=== PATIENT | male | born 1940 | race Asian ===

== ENCOUNTER 2016-05-17 09:03 | Emergency (ER) | payer OTHER ==
[~2016-05-17] VITALS: Wt 84.1 kg
[2016-05-17 09:55] LABS: URINE BLOOD (Dip) POC 2+ (NEGATIVE)
--- NOTE | 2016-05-17 10:00 | ERD ---
ER Documentation Chief Complaint Date/Time DATE: 05/17/16 TIME: 09:59 Chief Complaint fc change, see attached note HPI 75-year-old male with history of BPH, hypertension, high cholesterol, and gout was sent here by PCP for Villagomez catheter replacement. The Villagomez catheter was originally placed on April 27, 2016. He has follow-up appointment with urologist, but not until June. Patient reports the catheter has been leaking. He also reports suprapubic pain, states that he was diagnosed with urinary tract infection 5 days ago, was given Keflex. The symptom has not resolved. Patient also reports one episode of epistaxis at 2 AM this morning. The bleeding has since stopped. Denies taking any blood thinners. Denies fever or chills. ROS All systems reviewed and are negative except as per history of present illness. Medications Home Meds Active Scripts Ciprofloxacin Hcl* (Ciprofloxacin Hcl*) 500 Mg Tablet, 500 MG PO BID for 7 Days , TAB Prov:CLAIRE SANCHEZ. PERMASTONE MECHANIC 05/17/16 Physical Exam Vitals Vital Signs Date Time Temp Pulse Resp B/P Pulse Ox O2 Delivery O2 Flow Rate FiO2 05/17/16 09:11 97.3 81 20 135/63 98 Physical Exam General impression: Well-developed, well-nourished. Alert, oriented, in no acute distress Head: Normocephalic, atraumatic. Eyes: PERRL, EOM normal. Sclerae are normal. Conjunctiva not injected. ENT: External canals patent. TM'sclear. Nasal mucosa, oral mucosa and oropharynx are normal. Neck: Supple, nontender. No lymphadenopathy. No nuchal rigidity. Respiration: Normal respiratory effort. Lungs clear to auscultate bilaterally. No wheezes, rales or rhonchi. Cardiovascular: Regular rate and rhythm. No murmurs or extra heart sounds. Abdomen: Abdomen normal to inspection. Mild suprapubic tenderness. No masses or organomegaly. Bowel sounds normal. Back: Normal to inspection. No midline spine tenderness. No CVA tenderness. Extremities: Extremities normal to inspection, nontender. ROM normal. Neuro: Mental status normal, speech normal. OFFSET ASSISTANT PRESS OPERATOR grossly intact. Skin: Normal turgor. No rash or lesions. Psych: Normal mood and affect. Results 24 hrs Laboratory Tests Test 05/17/16 09:55 Bedside Urine pH (LAB) 6.0 Bedside Urine Protein (LAB) Trace Bedside Urine Glucose (UA) Negative Bedside Urine Ketones (LAB) Negative Bedside Urine Blood 2+ Bedside Urine Nitrite (LAB) Negative Bedside Urine Leukocyte Esterase (L Trace Procedures/MDM Well-appearing 75-year-old male with history of BPH presented to the ED for Villagomez catheter replacement. Previous Villagomez was removed, new Villagomez was inserted. Urine was collected from a new Villagomez catheter. Urine dip showed trace leukocyte, 2+ blood, negative nitrite. I do have concern for Villagomez catheter related urinary tract infection. Patient is advised to discontinue Keflex. Cipro is prescribed for the patient. Patient is nontoxic-appearing. Patient appears well, stable for discharge and outpatient management. Medical decision making shared with patient and family. Education provided to patient and family. Patient and family expressed understanding of the plan. Medications on discharge: Cipro. Follow-up: Primary care provider in 2-3 days or return to ED if worse. Departure Diagnosis: Primary Impression: Encounter for Villagomez catheter replacement Additional Impression: UTI (urinary tract infection) Urinary tract infection type: catheter-associated UTI Indwelling urinary catheter type: indwelling urethral catheter Encounter type: initial encounter Qualified Code: T83.511A - Urinary tract infection associated with indwelling urethral catheter, initial encounter Condition: CLAIRE Zhou NP May 17, 2016 10:00
[2016-05-17] MEDS ORDERED: CIPR500T4 PO (10:25)
== END 2016-05-17 11:01 | disposition home or self-care (01) ==
LOC: FTE 09:03
DX: T83.098A Other mechanical complication of other urinary catheter, initial encounter (principal); T83.511A Infection and inflammatory reaction due to indwelling urethral catheter, initial encounter; I10 Essential (primary) hypertension; R10.30 Lower abdominal pain, unspecified; N39.0 Urinary tract infection, site not specified; Y73.2 Prosthetic and other implants, materials and accessory gastroenterology and urology devices associated with adverse incidents
CPT/HCPCS: 81003; 87086; Z7502; 99283

== ENCOUNTER 2016-06-02 14:08 | Emergency (ER) | payer OTHER ==
[~2016-06-02] VITALS: Ht 160 cm; Wt 78.8 kg
[~2016-06-02 14:08] MED LIST: CIPR500T4 PO
[2016-06-02 14:11] VITALS: Ht 160 cm; Wt 78.8 kg
[2016-06-02] MEDS ORDERED: NORM5DIS26 IJ (15:43)
--- NOTE | 2016-06-02 16:56 | ERD ---
ER Documentation Chief Complaint Date/Time DATE: 06/02/16 TIME: 16:55 Chief Complaint wants f/c check up, is leaking HPI Patient is a 76-year-old male with hypertension and urinary retention who presents with a leaking Villagomez catheter. The patient said that he has had the Villagomez catheter in since April and that it needs to be changed. He has no other complaints. He is planning to see Dr. Block on June 19. He has no fevers. He has no other complaints. ROS All systems reviewed and are negative except as per history of present illness. Medications Home Meds Active Scripts Normal Saline (Normal Saline Flush) 5 Ml Disp.syrin, 5 ML IJ ONCE, #30 Prov:ELIZABETH RHODES MD 06/02/16 Ciprofloxacin Hcl* (Ciprofloxacin Hcl*) 500 Mg Tablet, 500 MG PO BID for 7 Days , TAB Prov:CLAIRE SANCHEZ BUSINESS SUPPORT ASSOCIATE 05/17/16 PMhx/Soc History of Surgery: Yes (BILAT CATHARACT SX) Hx Alcohol Use: No (QUIT YEARS AGO) Hx Substance Use: No Hx Tobacco Use: No (QUIT YEARS AGO) Smoking Status: Never smoker FmHx Family History: diabetes Physical Exam Vitals Vital Signs Date Time Temp Pulse Resp B/P Pulse Ox O2 Delivery O2 Flow Rate FiO2 06/02/16 14:11 98.5 90 18 122/58 99 Physical Exam Const: No acute distress Head: Atraumatic Eyes: Normal Conjunctiva ENT: Normal External Ears, Nose and Mouth. Neck: Full range of motion..~ No meningismus. Resp: Clear to auscultation bilaterally Cardio: Regular rate and rhythm, no murmurs Abd: Soft, non tender, non distended. Normal bowel sounds Skin: No petechiae or rashes Back: No midline or flank tenderness Ext: No cyanosis, or edema Neur: Awake and alert : Villagomez catheter in place without signs of obvious leakage or infection at this time Procedures/MDM Patient is a 76-year-old male presents with a Villagomez catheter leaking. The patient will have his Villagomez catheter changed. I do not believe he requires further workup or admission the hospital at this time. He should try to see Dr. Block sooner so that this can be evaluated. The patient can return for any worsening symptoms. Departure Diagnosis: Primary Impression: Genitourinary symptoms Additional Impression: Complication of catheter Encounter type: initial encounter Qualified Code: T85.9XXA - Complication of catheter, initial encounter Condition: Fair Patient Instructions: Urinary Retention, Male Referrals: DASHA LIMA (PCP) DONALD BLOCK MD Additional Instructions: SPECIALIST: YOU HAVE A MEDICAL CONDITION WHICH REQUIRES YOU TO SEE A SPECIALIST WITHIN THE NEXT 1-2 DAYS. PLEASE FOLLOW UP WITH YOUR PRIMARY PHYSICIAN FOR REFFERAL.IF YOU DO NOT HAVE A PRIMARY CARE PHYSICIAN AND/OR YOU CAN NOT AFFORD TO SEE A PHYSICIAN THE FOLLOWING RESOURCES HAVE BEEN SUPPLIED TO YOU. IT IS YOUR RESPONSIBILITY TO BE SEEN BY THE SPECIALIST ELIZABETH RHODES MD Jun 02, 2016 16:56
== END 2016-06-02 15:58 | disposition home or self-care (01) ==
LOC: FTE 14:08
DX: T83.038A Leakage of other urinary catheter, initial encounter (principal); I10 Essential (primary) hypertension; Y73.3 Surgical instruments, materials and gastroenterology and urology devices (including sutures) associated with adverse incidents; Z87.891 Personal history of nicotine dependence
CPT/HCPCS: 99283

== ENCOUNTER 2017-01-05 08:40 | Inpatient (IN) | payer OTHER ==
[2017-01-04 14:55] VITALS: BMI 26.3
[~2017-01-05] VITALS: Ht 170.2 cm; Wt 75.4 kg
[2017-01-05] VITALS (20 sets, daily range): BP systolic 121–191; BP diastolic 58–100; PULSE 67–84; RESP 11–20; Ht 170.2 cm; Wt 75.4 kg
--- NOTE | 2017-01-05 08:04 | HP ---
DATE OF ADMISSION: 01/05/2017 CHIEF COMPLAINT: Urinary retention and adenocarcinoma of the prostate and bladder stone. HISTORY OF PRESENT ILLNESS: This is a 76-year-old male [place]e, had urinary retention since this year. He has had multiple visits to the emergency room at [facility] and at [facility] because of the retention. He did have an indwelling Villagomez catheter and that has been c hanged regularly because the patient was not able to urinate once the catheter is removed. The bennett ent also was found to have an elevated PSA and because of that, he underwent a transrectal ultrasoun d and ultrasound-guided biopsy of the prostate and that showed adenocarcinoma of the prostate, Gleas on score of 8. The patient also did have a workup and appeared to also because of the retention, he needs to undergo a transurethral resection of the prostate. PAST MEDICAL HISTORY: He does have a history of heart murmur. There is no history of myocardial in farction, no history of congestive heart failure. He does have a history of hypertension and high c holesterol. PAST SURGICAL HISTORY: He did have bilateral eye surgery for cataracts. MEDICATIONS: He has been on at home include: 1. Flomax 0.4 mg. 2. Benazepril 10 mg daily. 3. Atorvastatin 40 mg daily. SOCIAL HISTORY: The patient used to smoke and quit 20 years ago and he does not drink any alcohol. ALLERGIES: HAS NO KNOWN DRUG ALLERGIES. PHYSICAL EXAMINATION: GENERAL: Reveals an elderly male who is in no acute distress. HEAD AND NECK: Unremarkable. There is no cervical adenopathy. HEART: Regular. LUNGS: Clear. ABDOMEN: Soft with no abdominal mass palpable. He does have bilateral inguinal hernias, right side greater than the left. GENITALIA: External genitalia are normal. RECTAL: Examination revealed a hard prostate. GENITOURINARY: The patient does have an indwelling Villagomez catheter that is draining clear urine. The patient later on underwent a transrectal ultrasound and ultrasound-guided biopsy of the prostate . His PSA was 22.3. The transrectal ultrasound-guided biopsy did show adenocarcinoma, [place] scor e of 8 on both sides. The patient did have a bone scan and this showed lesions within bilateral rib s, could represent sequelae of prior trauma, a neoplastic process cannot be completely excluded. Th is can either be reevaluated by a CT or a rib series. Alternatively, followup bone scan can be perf ormed to evaluate for stability and/or changes, no abnormal tracer uptake or discrete lesions noted elsewhere otherwise to suggest osseous metastasis, degenerative changes also. The patient did have a CT scan of the abdomen and pelvis without and with contrast and that was reported as marked enlarg ement of the prostate gland with moderate to marked thickening of the urinary bladder wall, enlarged urinary bladder calculus that measured about 1.8 cm. The patient did not have any regional lymphad enopathy or bony metastatic disease. He does have distal abdominal aortic aneurysm with dilated pro ximal common iliac arteries as well. Bilateral fat containing inguinal hernias, right larger than l eft and gallstones. IMPRESSION: 1. Urinary retention. 2. Adenocarcinoma of the prostate. PLAN: To do a cystoscopy and transurethral resection of the prostate. Also try to remove the bladd er stone. I have explained the procedure to the patient in detail. The benefits and risks were dis cussed and he is agreeable to proceed. Dictated By: DONALD BALLARD/COLETTE Conf#: [id number] DID#: [id number]
[~2017-01-05 08:40] MED LIST changes: +CEFTRIAXONE 1 GM/NS 50 ML IVPB SCH; +NORM5DIS26 IJ
[2017-01-05] MEDS ORDERED: ATOR20TA38 PO (09:25)
[2017-01-05] MEDS ORDERED: BENA10TA48 PO (09:26)
[2017-01-05] MEDS ORDERED: CALC500T91 PO ×2 (09:26→10:56)
[2017-01-05] MEDS ORDERED: TAMS-14 PO (09:26)
--- NOTE | 2017-01-05 10:25 | RADRPT ---
PROCEDURE: Chest x-ray CLINICAL INDICATION: Preop TECHNIQUE: Chest single view COMPARISON: None FINDINGS: The heart is normal in size. The pulmonary vessels are normal in caliber. The lungs are clear. Th e costophrenic angles are sharp. The visualized bony thorax is unremarkable. IMPRESSION: No acute cardiopulmonary disease. Mild atherosclerotic aortic calcification RPTAT: HH .Jonathan Carreno MD, Date Time Electronically viewed and signed by .Jonathan Carreno MD, MD on 01/05/2017 10:25 .W/
[2017-01-05] MEDS ORDERED: ATOR40TA68 PO (10:57)
[2017-01-05] MEDS ORDERED: CEFTRIAXONE 1 GM INJ IM ONE (12:30)
[2017-01-05] MEDS ORDERED: MIDAZOLAM 1 MG/ML 2 ML INJ ONE (12:42)
[2017-01-05] MEDS ORDERED: PHENYLephrine (100 MCG/ML) 5ML SYG ONE (12:50)
[2017-01-05] MEDS ORDERED: ROCURONIUM 50 MG INJ ONE ×2 (13:12→14:06)
[2017-01-05] MEDS ORDERED: SUCCINYLCHOLINE CHLORIDE 100 MG/5 ML SYG IV ONE (13:12)
[2017-01-05] MEDS ORDERED: PROPOFOL 20 ML ONE (13:12)
[2017-01-05] MEDS ORDERED: LIDOCAINE 2% (SDV) 5 ML INJ ONE (13:12)
[2017-01-05] MEDS ORDERED: FENTAnyl 50 MCG/ML VIAL ONE (13:12)
[2017-01-05] MEDS ORDERED: DEXAMETHASONE 4 MG/ML 1 ML INJ ONE (13:18)
[2017-01-05] MEDS ORDERED: ONDANSETRON 4 MG INJ ONE (13:18)
[2017-01-05] MEDS ORDERED: FAMOTIDINE 20 MG INJ ONE (13:18)
[2017-01-05] MEDS ORDERED: SUGAMMADEX SODIUM 200 MG/2 ML VIAL IV ONE ×3 (14:19→14:36)
[2017-01-05] MEDS ORDERED: GLYCOPYRROLATE 0.4 MG INJ ONE (14:35)
[2017-01-05] MEDS ORDERED: LABETALOL HCL 20MG INJ ONE (14:37)
[2017-01-05] MEDS ORDERED: KETOROLAC 30 MG INJ ONE (14:41)
--- NOTE | 2017-01-05 14:58 | OPR ---
Date/Time of Note Date/Time of Note DATE: 01/05/17 TIME: 14:53 Operative Report Procedure Date: Jan 05, 2017 Preoperative Diagnosis Adenocarcinoma of the prostate, urinary retention, bladder stone Postoperative Diagnosis Adenocarcinoma of the prostate, urinary retention, bladder stone Operation/Procedure Performed Transurethral resection of the prostate and removal of bladder stone Surgeon see signature line Senior Risk Analyst None Anesthesia Type: general Anesthesiologist: AUGUSTA BOYD MD Estimated Blood Loss: 150 - 200 ml's Transfusion none Specimen Prostatic tissue Grafts/Implants none Tubes/Drains 24 Jamaican three-way Villagomez catheter with continuous bladder irrigation Complications none Pt Condition Post Procedure: stable Disposition: PACU Indications Adenocarcinoma of the prostate with urinary retention and bladder stone Procedure Description The patient was brought to the operating room general anesthesia was induced. Timeout was done the patient was identified by his name birthdate and the procedure. The patient was given 1 g of ceftriaxone IV at the start of the procedure. The genital area was then prepped and draped in the usual sterile manner. cystoscopy was done was a 22 Jamaican cystoscope and it showed a large bladder stone and prostatic enlargement with obstruction, the bladder was trabeculated, there was no bladder tumors . The bladder stone was then broken using the 1000 m holmium laser and all the stone fragments were drained out of the bladder. The cystoscope was then removed and the urethra was dilated with a Nette dilators up to #30 Jamaican. The 26 Jamaican bipolar resectoscope sheath was then introduced under direct vision through the penile urethra all the way to the bladder. Then the resection of the prostate was started first the median lobe was resected then the right lateral lobe then the left lateral lobe and finally the anterior lobe as well as apical tissue. All the bleeders were electrocoagulated, all the prostatic chips were evacuated, good hemostasis was obtained. The ureteral orifices as well as external sphincter were intact and safeguarded during the whole procedure. At the end of the procedure the resectoscope was removed and #24 Jamaican three-way Villagomez catheter was inserted into the bladder the balloon was inflated with 60 mL of sterile water. the catheter was connected to a drainage back and continuous bladder irrigation was started in the operating room with normal saline. The patient was transferred to the recovery room in stable and satisfactory condition. DONALD BLOCK MD Jan 05, 2017 14:58
[2017-01-05] MEDS ORDERED: PROCHLORPERAZINE 10 MG INJ IV PRN (15:00)
[2017-01-05] MEDS ORDERED: ONDANSETRON 4 MG INJ IV PRN (15:00)
[2017-01-05] MEDS ORDERED: DEXTROSE 5%-0.45% NACL 1,000 ML IV SCH (15:00)
[2017-01-05] MEDS ORDERED: HYDROmorphONE (0.2 MG/ML) 10ML SYG IV PRN ×2 (15:00)
[2017-01-05] MEDS ORDERED: hydrALAzine 20 MG INJ ONE (15:01)
[2017-01-05] MEDS: FENTAnyl 50 MCG/ML VIAL IV PRN ×3 (15:20→15:34)
--- NOTE | 2017-01-05 15:23 | CONS ---
Date/Time of Note Date/Time of Note DATE: 01/05/17 TIME: 15:23 Assessment/Plan Assessment/Plan Chief Complaint/Hosp Course 76 yo M with PMH hypertension and hyperlipidemia is s/p TURP and bladder stone removal POD #0 after experiencing urinary retention since earlier this year Problems: Additional Assessment/Plan 1. Hypertension - Will resume patients home medication, Benazepril, and adjust as needed - Most likely component of pain that is contributing to elevated SBP 2. Hyperlipidemia - continue on Lipitor 3. Heart murmur - stable 4. Urinary retention s/p cystoscopy and bladder stone removal - management per primary team, Urology 5. Adenocarcinoma of Prostate - Bowler score 8 - s/p TURP - management per Primary Thank you for allowing me to participate in the care of this patient. Please call with any questions or concerns. Consultation Date/Type/Reason Admit Date/Time Jan 05, 2017 at 14:47 Date of Consultation: Jan 05, 2017 Reason for Consultation hypertension management Hx of Present Illness 76 yo M with PMH HTN, HLD, and heart murmur is s/p TURP and bladder stone removal after experiencing urinary retention since this year. Patient was interviewed in recovery and complaining of pain in pelvic area. History obtained from patient, chart and nurse at bedside. Patient has had multiple emergency room visits at [facility] as well as [facility]. Patient had an indwelling quispe placed that was changed regularly secondary to retention. Patient was found to have an elevated PSA as well with biopsy that showed Adenocarcinoma of prostate. Patient denies any diabetes, thyroid issues, chest pain, shortness of breath, nausea, vomiting, or abdominal issues. All 12 systems reviewed and pertinent positives as per HPI. All other negative. Constitutional: No chills, No diaphoresis, No disoriented, No febrile Eyes: no complaints ENT: No congestion, No discharge Respiratory: No cough, No shortness of breath, No sputum, No wheezing Cardiovascular: no complaints, No chest pain, No edema, No lightheadedness, No palpitations Gastrointestinal: No constipation, No diarrhea, No nausea, No vomiting Genitourinary: other (pelvic pain s/p TURP), No discharge, No dysuria Skin: no complaints, No erythema, No pruritis, No rash Neurologic: no complaints, No confusion, No focal-weakness, No headache Lymphatic: no complaints Psychological: nl mood/affect Immunologic: no complaints Past Medical History Medical History: high cholesterol, hypertension, other (heart murmur) Past Surgical History Past Surgical Hx: other (TURP, bx of prostate, bilateral cataract surgery) Family History Significant Family History: no pertinent family hx Social History Alcohol Use: occasionally Smoking Status: Former smoker Drug Use: none Exam/Review of Systems Vital Signs Vitals Vital Signs Date Time Temp Pulse Resp B/P Pulse Ox O2 Delivery O2 Flow Rate FiO2 01/05/17 14:58 78 16 180/100 97 Mask 8.0 01/05/17 14:55 98.0 Exam Constitutional: alert, distress (secondary to pain), oriented, well developed Psych: nl mood/affect Head: atraumatic, normocephalic Eyes: EOMI, PERRL ENMT: mucosa pink and moist Neck: non-tender, supple Respiratory: clear to auscultation, No crackles/rales, No wheezing Cardiovascular: regular rate and rhythm, systolic murmur, No gallop, No rub Gastrointestinal: bowel sounds, firm, non-tender, soft, No rebound or guarding Genitourinary - Male: other, No CVA tenderness Musculoskeletal: nl extremities to inspection, No muscle weakness, No swelling Extremities: No clubbing, No cyanosis, No edema Neurological: SENIOR FINANCIAL CONSULTANT II-XII intact, nl mental status, nl speech Skin: nl turgor Lymph: nl lymph nodes Imaging Free Text/Dictation PROCEDURE: Chest x-ray CLINICAL INDICATION: Preop TECHNIQUE: Chest single view COMPARISON: None FINDINGS: The heart is normal in size. The pulmonary vessels are normal in caliber. The lungs are clear. The costophrenic angles are sharp. The visualized bony thorax is unremarkable. IMPRESSION: No acute cardiopulmonary disease. Mild atherosclerotic aortic calcification Medications Medications Current Medications Dextrose/Sodium Chloride (D5-1/2ns) 1,000 ml @ 50 mls/hr Q20H IV ; Start at 15:00 Docusate Sodium (Colace) 100 mg BID PO ; Start 01/05/17 at 15:00 Acetaminophen/ Hydrocodone Bitart ([place] (5/325)) 1 tab Q6H PRN PO pain; Start 01/05/17 at 15:00 Procedures Procedures 1. TURP 2. removal of bladder stone NORMAN TRAN MD Jan 05, 2017 15:23
[2017-01-05] MEDS ORDERED: hydrALAzine 20 MG INJ IV PRN (15:30)
[2017-01-05] MEDS ORDERED: LABETALOL HCL 20MG INJ IV PRN (15:30)
[2017-01-05] MEDS: DOCUSATE SODIUM 100 MG CAP PO SCH ×2 (20:30→23:00)
[2017-01-05] MEDS: CALCIUM CARBONATE 1.25 GM TAB PO SCH (20:36)
[2017-01-05] MEDS ORDERED: TAMSULOSIN (SR) 0.4 MG CAP PO SCH (21:00)
[2017-01-05] MEDS ORDERED: CALCIUM CARBONATE 1.25 GM TAB PO SCH (21:00)
[2017-01-05] MEDS ORDERED: ATORVASTATIN 40 MG TAB PO SCH (21:00)
[2017-01-05] MEDS: HYDROCODONE/APAP (5/325) TAB PO PRN (23:03)
[2017-01-06] MEDS: HYDROCODONE/APAP (5/325) TAB PO PRN (04:43)
[2017-01-06 06:10] LABS: BASOPHILS % 0.2 % (0.0-2.0); HEMATOCRIT 38.3 % (42.0-52.0); HEMOGLOBIN 12.9 g/dl (14.0-18.0); LYMPHOCYTES % 15.4 % (15.0-51.0); MEAN CORPUSCULAR HEMOGLOBIN 31.5 pg (29.0-33.0); MEAN CORPUSCULAR HGB CONC 33.7 g/dl (32.0-37.0); MEAN CORPUSCULAR VOLUME 93.6 fl (82.0-101.0); MEAN PLATELET VOLUME 10.6 fl (7.4-10.4); MONOCYTE # 0.8 10^3/ul (0.3-0.9); MONOCYTES % 5.8 % (0.0-11.0); NEUTROPHIL # 10.1 10^3/ul (1.6-7.5); NEUTROPHILS % 78.3 % (39.0-77.0); PLATELET COUNT 214 10^3/UL (140-415); RED BLOOD COUNT 4.09 10^6/ul (4.70-6.10); RED CELL DISTRIBUTION WIDTH 12.1 % (11.5-14.5); WHITE BLOOD COUNT 12.9 10^3/ul (4.8-10.8)
[2017-01-06 06:26] LABS: CALCIUM 9.1 mg/dl (8.4-10.2); CREATININE 0.8 mg/dl (0.61-1.24); POTASSIUM 4.3 mmol/L (3.5-5.1)
[2017-01-06 08:00] VITALS: BP 119/58; RESP 18
[2017-01-06] MEDS: CALCIUM CARBONATE 1.25 GM TAB PO SCH (08:34)
[2017-01-06] MEDS: DOCUSATE SODIUM 100 MG CAP PO SCH (08:34)
[2017-01-06] MEDS ORDERED: BENAZEPRIL 10 MG TAB PO SCH (09:00)
[2017-01-06] MEDS ORDERED: CEPASTAT LOZENGE MT PRN (10:30)
--- NOTE | 2017-01-06 10:37 | CONS ---
Date/Time of Note Date/Time of Note DATE: 01/06/17 TIME: 10:36 Assessment/Plan Assessment/Plan Chief Complaint/Hosp Course 76 yo M with PMH hypertension and hyperlipidemia is s/p TURP and bladder stone removal POD #0 after experiencing urinary retention since earlier this year Problems: Additional Assessment/Plan 1. Hypertension- stable - Continue on home medication and no changes needed to be made at this time 2. Hyperlipidemia - continue on Lipitor 3. Heart murmur - stable 4. Urinary retention s/p cystoscopy and bladder stone removal - management per primary team, Urology 5. Adenocarcinoma of Prostate - Jae score 8 - s/p TURP - management per Primary 6. Sore Throat - lozenges PRN Consultation Date/Type/Reason Admit Date/Time Jan 05, 2017 at 14:47 Initial Consult Date 01/05/17 Reason for Consultation hypertension management Exam/Review of Systems Vital Signs Vitals Vital Signs Date Time Temp Pulse Resp B/P Pulse Ox O2 Delivery O2 Flow Rate FiO2 01/06/17 08:00 98.2 80 18 119/58 96 01/05/17 19:57 Room Air 01/05/17 14:58 8.0 Intake and Output 01/05/17 01/05/17 01/06/17 14:59 22:59 06:59 Intake Total 1300 ml 1600 ml 11002 ml Output Total 1800 ml 91305 ml Balance 1300 ml -200 ml 300 ml Exam General: resting comfortably, no acute distress, awake and alert HEENT: NC/AT. PERRL, supple. CVS: S1, S2 RRR, systolic murmur Lungs: CTA b/l. no wheezes or rhonchi Abd: soft, NT, ND. +BS. no rebound or guarding Ext: moving all extremities, no edema or cyanosis : quispe in place, no blood in quispe bag Skin: no new rashes Results Result Diagram: 01/06/17 0503 01/06/17 0503 Results 24 hrs Laboratory Tests Test 01/06/17 05:03 White Blood Count 12.9 H Red Blood Count 4.09 L Hemoglobin 12.9 L Hematocrit 38.3 L Mean Corpuscular Volume 93.6 Mean Corpuscular Hemoglobin 31.5 Mean Corpuscular Hemoglobin Concent 33.7 Red Cell Distribution Width 12.1 Platelet Count 214 Mean Platelet Volume 10.6 H Neutrophils % 78.3 H Lymphocytes % 15.4 Monocytes % 5.8 Eosinophils % 0.0 Basophils % 0.2 Nucleated Red Blood Cells % 0.0 Neutrophils # 10.1 H Lymphocytes # 2.0 Monocytes # 0.8 Eosinophils # 0.0 Basophils # 0.0 Nucleated Red Blood Cells # 0.0 Sodium Level 141 Potassium Level 4.3 Chloride Level 101 Carbon Dioxide Level 28 Anion Gap 16 Blood Urea Nitrogen 15 Creatinine 0.80 Glucose Level 179 Calcium Level 9.1 Magnesium Level 1.8 Medications Medications Current Medications Dextrose/Sodium Chloride (D5-1/2ns) 1,000 ml @ 50 mls/hr Q20H IV Last administered on 01/05/17 17:18; Admin Dose 50 MLS/HR; Start 01/05/17 at 15:00 Docusate Sodium (Colace) 100 mg BID PO Last administered on 01/06/17 08:34; Admin Dose 100 MG; Start 01/05/17 at 15:00 Acetaminophen/ Hydrocodone Bitart ([place] (5/325)) 1 tab Q6H PRN PO pain Last administered on 01/06/17 04:43; Admin Dose 1 TAB; Start 01/05/17 at 15:00 Atorvastatin Calcium (Lipitor) 40 mg QHS PO Last administered on 01/05/17 20: 35; Admin Dose 40 MG; Start 01/05/17 at 21:00 Benazepril HCl (Lotensin) 10 mg DAILY PO Last administered on 01/06/17 08:35; Admin Dose 10 MG; Start 01/06/17 at 09:00 Tamsulosin HCl (Flomax) 0.4 mg HS PO Last administered on 01/05/17 20:36; Admin Dose 0.4 MG; Start 01/05/17 at 21:00 Calcium Carbonate (Oyster Shell Calcium) 1.25 gm BID PO Last administered on 08:34; Admin Dose 1.25 GM; Start 01/05/17 at 21:00 Phenol (Cepastat Lozenge) 1 lozenge Q1H PRN MT sore throat; Start 01/06/17 at 10:30 NORMAN TRAN MD Jan 06, 2017 10:36
--- NOTE | 2017-01-06 15:40 | PDOCDIS ---
Discharge Instructions DIAGNOSIS Discharge Diagnosis Urinary retention, adenocarcinoma of the prostate, urinary tract infection, pending pathology report CONDITION Patient Condition: Good HOME CARE INSTRUCTIONS: Diet Instructions: Same as before the surgerySpecial Diet: regular ACTIVITY: Activity Restrictions: Slowly Increase Activity Rest between Activity Avoid heavy lifting Do not Drive Bathing Restrictions: Shower (May take a shower keep the Villagomez and the leg back connected and dry them after the shower) FOLLOW UP/APPOINTMENTS Follow-up Plan Call the office at [phone] for an appointment to be seen next Sunday or morning to remove the Villagomez catheter DONALD BLOCK MD Jan 06, 2017 15:40
--- NOTE | 2017-01-06 15:47 | DS ---
Date/Time of Note Date/Time of Note DATE: 01/06/17 TIME: 15:42 Discharge Summary Admission/Discharge Info Admit Date/Time Jan 05, 2017 at 14:47 Discharge Date/Time Discharge Diagnosis Urinary retention, adenocarcinoma of the prostate, urinary tract infection, pending pathology report Patient Condition: Good Consults Dr. Rosanne Hoffman Procedures Transurethral resection of the prostate and removal of large bladder stone Hx of Present Illness 76-year-old male had urinary retention for many months, was diagnosed with prostate cancer on transrectal ultrasound and biopsy. He has not been able to urinate even while on tamsulosin. He was admitted to the hospital underwent a transurethral resection of the prostate and he did have a large bladder stone that was also broken with the holmium laser and the fragments removed. Postop he did have continuous bladder irrigation for 1 day and the urine remained clear after the irrigation was stopped. The patient therefore could go home today with a Villagomez catheter and a leg bag and follow-up in the office in about 3 -4 days to remove the Villagomez catheter. He should continue the same medications he was on prior to his surgery. Hospital Course Hospital course was uneventful. He did have a continuous bladder irrigation for 1 day. the irrigation was stopped this morning and the urine remained clear the labs results are included here and they are all normal Home Meds Reported Medications Atorvastatin* (Atorvastatin*) 40 Mg Tablet, 40 MG PO QHS, #30 TAB 01/05/17 Calcium Carbonate ([id number]) 500 Mg Tablet, 500 MG PO DAILY, TAB 01/05/17 Calcium Carbonate (Bqjx-Grq-308) 500 Mg Tablet, 500 MG PO BID, TAB 01/05/17 Benazepril Hcl* (Benazepril Hcl*) 10 Mg Tablet, 10 MG PO DAILY, #30 TAB 01/05/17 Tamsulosin Hcl* (Flomax*) 0.4 Mg Cap.er.24h, 0.4 MG PO HS, CAP 01/05/17 Discontinued Reported Medications Atorvastatin Calcium* (Atorvastatin Calcium*) 20 Mg Tablet, 20 MG PO QHS, #30 TAB 01/05/17 Discontinued Scripts Normal Saline (Normal Saline Flush) 5 Ml Disp.syrin, 5 ML IJ ONCE, #30 Prov:ELIZABETH RHODES MD 06/02/16 Ciprofloxacin Hcl* (Ciprofloxacin Hcl*) 500 Mg Tablet, 500 MG PO BID for 7 Days , TAB Prov:CLAIRE SANCHEZEnrrique LLOYD 05/17/16 Follow-up Plan Call the office at [phone] for an appointment to be seen next Sunday or morning to remove the Villagomez catheter Primary Care Provider [place] Time spent on discharge: > 30 minutes Pending Labs Laboratory Tests Test 01/06/17 05:03 White Blood Count 12.910^3/ul (4.8-10.8) Red Blood Count 4.0910^6/ul (4.70-6.10) Hemoglobin 12.9g/dl (14.0-18.0) Hematocrit 38.3% (42.0-52.0) Mean Corpuscular Volume 93.6fl (82.0-101.0) Mean Corpuscular Hemoglobin 31.5pg (29.0-33.0) Mean Corpuscular Hemoglobin Concent 33.7g/dl (32.0-37.0) Red Cell Distribution Width 12.1% (11.5-14.5) Platelet Count 11224^3/UL (140-415) Mean Platelet Volume 10.6fl (7.4-10.4) Neutrophils % 78.3% (39.0-77.0) Lymphocytes % 15.4% (15.0-51.0) Monocytes % 5.8% (0.0-11.0) Eosinophils % 0.0% (0.0-7.0) Basophils % 0.2% (0.0-2.0) Nucleated Red Blood Cells % 0.0/100WBC (0.0-0.0) Neutrophils # 10.110^3/ul (1.6-7.5) Lymphocytes # 2.010^3/ul (0.8-2.9) Monocytes # 0.810^3/ul (0.3-0.9) Eosinophils # 0.010^3/ul (0.0-0.5) Basophils # 0.010^3/ul (0.0-0.1) Nucleated Red Blood Cells # 0.010^3/ul (0.0-0.0) Sodium Level 141mmol/L (135-144) Potassium Level 4.3mmol/L (3.5-5.1) Chloride Level 101mmol/L (97-110) Carbon Dioxide Level 28mmol/L (21-31) Anion Gap 16 (8-16) Blood Urea Nitrogen 15mg/dl (7-20) Creatinine 0.80mg/dl (0.61-1.24) Glucose Level 179mg/dl (70-220) Calcium Level 9.1mg/dl (8.4-10.2) Magnesium Level 1.8mg/dl (1.7-2.5) DONALD BLOCK MD Jan 06, 2017 15:47
--- NOTE | 2017-01-08 13:24 | RADRPT ---
Vent Rate: 60 bpm RR Interval: 0 msec WA Interval: 192 msec QRS Duration: 90 msec QT Interval: 402 msec QTC Interval: 402 msec P-R-T [place]: 21 - 59 - 71 degrees Normal sinus rhythm with sinus arrhythmia Normal ECG Electronically Signed By: Zachariah Jessica [id number]
== END 2017-01-06 18:20 | disposition home or self-care (01) | DRG 713 ==
LOC: SDS 08:40 → OBSVTOIN 14:47 → INTOOBSV 14:47 → REC 14:47 → MS1 16:25
PROVIDERS: ADMIT Urology; ATTEND Urology
PROC: 0TCB8ZZ Extirpation of Matter from Bladder, Via Natural or Artificial Opening Endoscopic (ICD-10-PCS; 2017-01-05)
PROC: 0VT08ZZ Resection of Prostate, Via Natural or Artificial Opening Endoscopic (ICD-10-PCS; principal; 2017-01-05 12:30)
DX: C61 Malignant neoplasm of prostate (principal); N39.0 Urinary tract infection, site not specified; I10 Essential (primary) hypertension; N21.0 Calculus in bladder; R33.8 Other retention of urine; E78.5 Hyperlipidemia, unspecified; J02.9 Acute pharyngitis, unspecified
CPT/HCPCS: 71010; 80048; 83735; 85025; 88300; 88309; 93005; J0360; J0696; J1100; J1170; J1885; J2250; J2370; J2405; J3010; J7042

== ENCOUNTER 2017-01-14 12:02 | Emergency (ER) | payer OTHER ==
[~2017-01-14] VITALS: Ht 172.7 cm; Wt 74.8 kg
[~2017-01-14 12:02] MED LIST changes: +ATOR40TA68 PO; +BENA10TA48 PO; +CALC500T91 PO; -CEFTRIAXONE 1 GM/NS 50 ML IVPB SCH; -CIPR500T4 PO; -NORM5DIS26 IJ
[2017-01-14 12:05] VITALS: Ht 172.7 cm; Wt 74.8 kg
[2017-01-14] MEDS ORDERED: LIDOCAINE 1%/EPI 30 ML INJ INJ STA (12:24)
[2017-01-14] MEDS ORDERED: SOD CHLORIDE 0.9% 500 ML IV STA (12:24)
[2017-01-14] MEDS ORDERED: ACETAMINOPHEN 500 MG TAB PO STA (12:24)
[2017-01-14] MEDS ORDERED: LIDOCAINE 2% (MDV) 20 ML INJ ONE (12:27)
[2017-01-14] MEDS ORDERED: DIPHTH/TET/ACEL PERTUSS (ADULT) 0.5 ML VIAL IM* ONE (12:30)
--- NOTE | 2017-01-14 13:21 | ERD ---
ER Documentation Chief Complaint Chief Complaint Complains of laceration to forehead after a syncopal epidode HPI This is a very pleasant 76-year-old male who presents to the emergency room with a syncopal episode. The history is excellent. The family states that the patient was sitting on the toilet. He has been constipated and he was bearing down. He started to feel lightheaded and sat up suddenly and fell to the ground. He hit his head and chest on the way down. There is no witnessed seizure activity and the patient had no significant loss of consciousness, the LOC was very brief if at all complete. The patient did sustain a laceration to the left forehead. He is now describing mild forehead pain, bilateral neck pain without midline pain in anterior chest wall pain. He did not have a prodrome of chest pain or shortness of breath, no pleuritic pain, no fevers or chills. His pain is located to these areas and is approximately 6 out of 10. Unknown tetanus status. ROS All systems reviewed and are negative except as per history of present illness. Medications Home Meds Active Scripts Acetaminophen* (Tylophen*) 500 Mg Capsule, 2 CAP PO Q8H Y for PAIN AND OR ELEVATED TEMP, #20 CAP Prov:GANGA DELUNA MD 01/14/17 Glycerin* (Glycerin (Adult)*) 1 Each Supp.rect, 1 EACH AR DAILY Y for CONSTIPATION, #20 SUPP.RECT Prov:GANGA DELUNA MD 01/14/17 Magnesium Citrate* (Magnesium Citrate*) 296 Ml Solution, 296 ML PO ONCE Y for CONSTIPATION, #1 BOTTLE 3 Refills Prov:GANGA DELUNA MD 01/14/17 Reported Medications Atorvastatin* (Atorvastatin*) 40 Mg Tablet, 40 MG PO QHS, #30 TAB 01/05/17 Calcium Carbonate (Vapm-[id number]-251) 500 Mg Tablet, 500 MG PO DAILY, TAB 01/05/17 Benazepril Hcl* (Benazepril Hcl*) 10 Mg Tablet, 10 MG PO DAILY, #30 TAB 01/05/17 Discontinued Reported Medications Calcium Carbonate (Coyf-[id number]-385) 500 Mg Tablet, 500 MG PO BID, TAB 01/05/17 Allergies Allergies: Coded Allergies: No Known Allergy (Unverified , 01/14/17) PMhx/Soc History of Surgery: Yes (CATARACT OU) Anesthesia Reaction: No Hx Neurological Disorder: No Hx Respiratory Disorders: No Hx Cardiac Disorders: Yes (HTN,HLP) Hx Psychiatric Problems: No Hx Miscellaneous Medical Probl: No Hx Alcohol Use: Yes (OCCASIONAL) Hx Substance Use: No Hx Tobacco Use: No FmHx Family History: No diabetes Physical Exam Vitals Vital Signs Date Time Temp Pulse Resp B/P Pulse Ox O2 Delivery O2 Flow Rate FiO2 01/14/17 12:05 98.3 79 20 136/61 100 Physical Exam Airway is intact Bilateral breath sounds Strong distal pulses No obvious deficits General: Well developed, well nourished, no acute distress Head: There is an approximate 3.0 cm oblique laceration just above the left eyebrow on the forehead, gaping but base of the wound is visualized without violation of the galea, no skull depression Eyes: Pupils equally reactive, EOM intact ENT: Moist mucous membranes Neck: Supple, no lymphadenopathy, No midline tenderness, deformities, step-offs to the cervical spine, full active and passive range of motion without midline pain. The patient does have some mild paraspinal soft tissue tenderness Respiratory: Lungs clear bilaterally, no distress, slight reproducible anterior chest wall tenderness, no crepitus Cardiovascular: RRR, no murmurs, rubs, or gallops Abdominal: Soft, non-tender, non-distended, no peritoneal signs, pelvis is stable : Deferred MSK: No edema, no unilateral swelling, 5/5 strength, no midline tenderness deformities or step-offs to the thoracolumbar spine Neurologic: Alert and oriented, moving all extremities, normal speech, no focal weakness, no cerebellar signs Skin: No ecchymoses or bruising to the chest or abdomen Psych: Normal mood Result Diagram: 01/14/17 1300 01/14/17 1300 Results 24 hrs Laboratory Tests Test 01/14/17 13:00 White Blood Count 10.610^3/ul Red Blood Count 4.1810^6/ul Hemoglobin 13.3g/dl Hematocrit 40.2% Mean Corpuscular Volume 96.2fl Mean Corpuscular Hemoglobin 31.8pg Mean Corpuscular Hemoglobin Concent 33.1g/dl Red Cell Distribution Width 12.2% Platelet Count 91220^3/UL Mean Platelet Volume 9.9fl Neutrophils % 73.9% Lymphocytes % 15.8% Monocytes % 8.3% Eosinophils % 1.0% Basophils % 0.4% Nucleated Red Blood Cells % 0.0/100WBC Neutrophils # 7.910^3/ul Lymphocytes # 1.710^3/ul Monocytes # 0.910^3/ul Eosinophils # 0.110^3/ul Basophils # 0.010^3/ul Nucleated Red Blood Cells # 0.010^3/ul Prothrombin Time 12.5Sec Prothrombin Time Ratio 1.0 INR International Normalized Ratio 0.93 Activated Partial Thromboplast Time 29.1Sec Sodium Level 139mmol/L Potassium Level 4.6mmol/L Chloride Level 100mmol/L Carbon Dioxide Level 28mmol/L Anion Gap 16 Blood Urea Nitrogen 15mg/dl Creatinine 0.84mg/dl Glucose Level 165mg/dl Calcium Level 9.1mg/dl Troponin I < 0.012ng/ml Current Medications Medications (Trade) Dose Ordered Sig/Norm Route PRN Reason Start Time Stop Time Status Last Admin Dose Admin Sodium Chloride (NS) 500 ml @ 500 mls/hr Q1H STAT IV 01/14/17 12:24 01/14/17 13:23 DC 01/14/17 13:48 Acetaminophen (Tylenol Tab) 1,000 mg ONCE STAT PO 01/14/17 12:24 01/14/17 12:26 DC 01/14/17 13:48 Diphtheria/ Tetanus/Acell Pertussis (Adacel) 0.5 ml ONCE ONCE IM* 01/14/17 12:30 01/14/17 12:31 DC 01/14/17 13:49 Lidocaine/ Epinephrine (Xylocaine 1%/ Epi (Pf)) 30 ml ONCE STAT INJ 01/14/17 12:24 01/14/17 12:26 DC Lidocaine (Xylocaine 2% (Mdv) 20 ml) 20 ml STK-MED ONCE .ROUTE 01/14/17 12:27 01/14/17 12:28 DC Procedures/MDM EKG, MONITORS, & DIAGNOSTIC IMAGING: EKG: I reviewed and interpreted a 12-lead EKG. Rhythm: Normal sinus rhythm Ectopy: None Intervals: No abnormalities ST segments: No elevations or depressions T waves: No contiguous inversions Chest x-ray: I reviewed and interpreted a 1 view of the chest Mediastinum: No enlargement Cardiac silhouette: No cardiomegaly Airspace: Clear lung tamayo bilaterally without evidence of pneumothorax Bones: No evidence of fracture CT brain: IMPRESSION: 1. No evidence of acute intracranial pathology. 2. Small lacuna in the right caudate head. 3. Periventricular white matter hypodensities are nonspecific but likely reflect chronic microvascular ischemic change. 4. 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 CT cervical spine: No evidence of acute fracture dislocation or subluxation per radiologist PROCEDURES: Laceration Note: The patient was verbally consented prior to procedure and understands the risks , benefits, and alternatives. The patient is agreeable to procedure and has given verbal consent. Length: 3.0 cm to the forehead Irrigation: Thorough irrigation was performed with pressure is normal saline Inspection: There is no evidence of deep tissue or structural injury, no evidence of foreign bodies Anesthesia: 1% lidocaine with epinephrine approximately 3 cc Repair: Single-layer repair using simple interrupted sutures of six-point 0 Prolene a total number of 5 sutures used with excellent approximation. A clean dressing was applied. The patient tolerated the procedure well with no complications. LAB INTERPRETATION: No anemia, negative troponin MEDICAL DECISION MAKING: The patient gives an excellent history that confirms that this is most likely vasovagal and orthostatic syncopal episode. The patient was bearing down and stood up suddenly. This is consistent with this process. The patient is unsure if he truly lost consciousness but he did fall to the ground. His chest pain seems to be related to blunt chest injury rather than cardiogenic process. He had no prodrome of chest pain or shortness of breath, he has reproducible symptoms. The blunt of the injury seems to be to the head. He has mild paraspinal neck tenderness and while he does not have midline tenderness given the patient's age I believe CT imaging of the head and cervical spine would be appropriate. Chest x-ray will be obtained. Given the patient does have chest pain I believe EKG and single troponin would be reasonable but again given reproducible symptoms this is likely consistent with contusion rather than cardiac etiology. The patient has no other injuries noted on clinical exam. He additionally is describing constipation but has a benign and soft abdomen. No indication for CT imaging. An advanced bowel regimen would be reasonable. ER COURSE: The patient was given Tylenol. His wound was thoroughly irrigated and repaired as documented above. Suture removal in 5 days. Laboratory testing and diagnostic imaging was obtained that shows no evidence of blunt force injury, alternative diagnosis. The patient's symptoms are improved. He is steady on his feet in the emergency room. At this point I feel the patient can be safely discharged home again, with a better bowel regimen with magnesium citrate and glycerin suppositories. The patient has a primary care follow-up tomorrow which I believe is appropriate. Low risk for delayed intracranial hemorrhage as he is not taking anticoagulants. Return precautions for close head injury discussed with the family. I kept the patient and/or family informed of laboratory and diagnostic imaging results throughout the emergency room course. DISPOSITION PLAN: We discussed follow up with the patient's primary care doctor within 24 to 48 hours as needed. We also discussed return to the emergency room for worsening symptoms or worsening condition. Outpatient referral: [None required] Discharge Medications: Tylenol, magnesium citrate, glycerin suppository Departure Diagnosis: Primary Impression: Vasovagal syncope Additional Impressions: Closed head injury Encounter type: initial encounter Qualified Code: S09.90XA - Closed head injury, initial encounter Forehead laceration Encounter type: initial encounter Qualified Code: S01.81XA - Laceration of forehead, initial encounter Acute cervical sprain Encounter type: initial encounter Qualified Code: S13.9XXA - Acute sprain of ligament of neck, initial encounter Chest wall contusion Encounter type: initial encounter Laterality: unspecified laterality Qualified Code: S20.219A - Contusion of chest wall, unspecified laterality, initial encounter Constipation Constipation type: unspecified constipation type Qualified Code: K59.00 - Constipation, unspecified constipation type Condition: GANGA Apple MD Jan 14, 2017 13:21
--- NOTE | 2017-01-14 13:37 | RADRPT ---
PROCEDURE: XR Chest. CLINICAL INDICATION: Syncope. TECHNIQUE: Chest x-ray, single view. COMPARISON: 01/05/2017. FINDINGS: The cardiomediastinal silhouette is normal. Thoracic aortic atherosclerotic calcification is present . Low inspiratory lung volumes are present. Minimal mild scarring is seen within the left lung base. There is no focal pulmonary parenchymal opacification or evidence of large pleural effusion. Degen erative changes of the spine are present. The visualized upper abdomen is unremarkable. IMPRESSION: Shallow inspiration with minimal mild left basilar scarring. RPTAT: AA .Jordana Sánchez MD, MD Date Time Electronically viewed and signed by .Jordana Sánchez MD, on 01/14/2017 13:37 .T/
--- NOTE | 2017-01-14 13:38 | RADRPT ---
PROCEDURE: CT Brain without contrast. CLINICAL INDICATION: Syncope TECHNIQUE: A CT of the brain was performed on a [employer] 64-slice CT scanner utilizing axial imaging from the skull base through the vertex without IV contrast. Multiplanar reformatted images were made. Images were reviewed on a PACS workstation. The CTDIvol is 42.8 mGy and the DLP is 720 mGycm. DICOM images are available. One or more of the following dose reduction techniques were utilized: 1.) Automated exposure control 2.) Adjustment of the mA +/- kV according to patient's size 3.) Use of iterative reconstruction technique. COMPARISON: None FINDINGS: There is no intracranial hemorrhage, mass effect, or midline shift. No hydrocephalous. No extra-axia l fluid collection is seen. Periventricular white matter hypodensities are nonspecific but likely re flect chronic microvascular ischemic change. Small lacunar present in the right caudate head. Old ri ght cortical parietal infarct. Rodriguez-white matter differentiation is preserved. The visualized parana jesus sinuses and osseous structures are grossly unremarkable. IMPRESSION: 1. No evidence of acute intracranial pathology. 2. Small lacuna in the right caudate head. 3. Periventricular white matter hypodensities are nonspecific but likely reflect chronic microvascu lar ischemic change. 4. 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 Physician Scarlett Date Time Electronically viewed and signed by Physician Scarlett on 01/14/2017 13:38 ML/
[2017-01-14 13:54] LABS: BASOPHILS % 0.4 % (0.0-2.0); EOSINOPHILS # 0.1 10^3/ul (0.0-0.5); HEMATOCRIT 40.2 % (42.0-52.0); HEMOGLOBIN 13.3 g/dl (14.0-18.0); LYMPHOCYTES # 1.7 10^3/ul (0.8-2.9); LYMPHOCYTES % 15.8 % (15.0-51.0); MEAN CORPUSCULAR HEMOGLOBIN 31.8 pg (29.0-33.0); MEAN CORPUSCULAR HGB CONC 33.1 g/dl (32.0-37.0); MEAN CORPUSCULAR VOLUME 96.2 fl (82.0-101.0); MEAN PLATELET VOLUME 9.9 fl (7.4-10.4); MONOCYTE # 0.9 10^3/ul (0.3-0.9); MONOCYTES % 8.3 % (0.0-11.0); NEUTROPHIL # 7.9 10^3/ul (1.6-7.5); NEUTROPHILS % 73.9 % (39.0-77.0); PLATELET COUNT 224 10^3/UL (140-415); RED BLOOD COUNT 4.18 10^6/ul (4.70-6.10); RED CELL DISTRIBUTION WIDTH 12.2 % (11.5-14.5); WHITE BLOOD COUNT 10.6 10^3/ul (4.8-10.8)
--- NOTE | 2017-01-14 13:56 | RADRPT ---
PROCEDURE: CT Cervical Spine without contrast. CLINICAL INDICATION: Syncope with some neck pain TECHNIQUE: A CT of the cervical spine was performed on a CT scanner utilizing thin section axial images from the skull base through the thoracic inlet. Sagittal and coronal reformatted images were made. The CTDIvol is 22.19 mGy and the DLP is 461.52 mGycm. One or more of the following dose red uction techniques were utilized: Automated exposure control, adjustment of the mA and/or kV accordi ng to patient size, use of iterative reconstruction technique. DICOM images are available. COMPARISON: No prior studies are available for comparison. FINDINGS: There is a normal lordosis of the cervical spine. The vertebral bodies are normal in height , densi ty, and alignment .No fracture is evident. Anterior bridging osteophyte formation is noted from C2-C3 through C7-T1 with calcification of the p osterior longitudinal ligament suggestive of diffuse idiopathic hyperostosis (DISH). C1-2: Normal atlanto-occipital and atlantoaxial articulation. C2-3: The disc is normal in height.Cystic degenerative changes of the odontoid. No significant disk bulge or protrusion is evident. There is no central canal stenosis or foraminal narrowing. C3-4: The disc is normal in height. Minimal calcification of the posterior longitudinal ligament.No significant disk bulge or protrusion is evident. There is no central canal stenosis or foraminal atilio rowing. C4-5: Calcification of the posterior longitudinal ligament projects 3 mm into these central canal d eforming the ventral aspect of the thecal sac without significant central canal or foraminal stenosi s. C5-6: The disc is normal in height. Minimal 2 mm central disc osteophyte complex No significant disk bulge or protrusion is evident. There is no central canal stenosis or foraminal narrowing. C6-7: The disc is normal in height. No significant disk bulge or protrusion is evident. There is no central canal stenosis or foraminal narrowing. C7-T1: The disc is normal in height. No significant disk bulge or protrusion is evident. There is no central canal stenosis or foraminal narrowing. No paravertebral soft tissue abnormality. Atherosclerotic arterial calcifications of the internal ca rotid arteries bilaterally. The visualized lung apices are clear. IMPRESSION: 1. No evidence of fracture or dislocation. No focal disc protrusion or central canal stenosis. 2. Preservation of disc height with multilevel anterior bridging osteophyte formation and posterior longitudinal ligament calcification suggestive of diffuse idiopathic hyperostosis (DISH). 3. No paravertebral soft tissue abnormality. RPTAT:AAJJ Zeina Curran Physician Date Time Electronically viewed and signed by Zeina Curran Physician on 01/14/2017 13:56 KAREEN/
[2017-01-14 14:09] LABS: INR 0.93; PROTIME 12.5 Sec (11.9-14.9)
[2017-01-14 14:10] LABS: PARTIAL THROMBOPLASTIN TIME 29.1 Sec (25.0-35.0)
[2017-01-14 14:12] LABS: ANION GAP 16 (8-16); BLOOD UREA NITROGEN 15 mg/dl (7-20); CALCIUM 9.1 mg/dl (8.4-10.2); CARBON DIOXIDE 28 mmol/L (21-31); CHLORIDE 100 mmol/L (97-110); CREATININE 0.84 mg/dl (0.61-1.24); GLUCOSE 165 mg/dl (70-220); POTASSIUM 4.6 mmol/L (3.5-5.1); SODIUM 139 mmol/L (135-144)
[2017-01-14 14:24] LABS: TROPONIN-I < 0.012 ng/ml (0.00-0.12)
[2017-01-14] MEDS ORDERED: MAGN296S40 PO (14:29)
[2017-01-14] MEDS ORDERED: ACET500C5 PO (14:29)
[2017-01-14] MEDS ORDERED: GLYC1SUP92 PR (14:29)
[2017-01-14 15:14] VITALS: BP 142/64; PULSE 81; RESP 18; TEMP 98.2
== END 2017-01-14 15:17 | disposition home or self-care (01) ==
LOC: E/R 12:02
DX: R55 Syncope and collapse (principal); S09.90XA Unspecified injury of head, initial encounter; S01.81XA Laceration without foreign body of other part of head, initial encounter; S13.9XXA Sprain of joints and ligaments of unspecified parts of neck, initial encounter; S20.219A Contusion of unspecified front wall of thorax, initial encounter; K59.00 Constipation, unspecified; I10 Essential (primary) hypertension; W18.39XA Other fall on same level, initial encounter; Y92.9 Unspecified place or not applicable
CPT/HCPCS: 12013; 36415; 70450; 71010; 72125; 80048; 84484; 85025; 85610; 85730; 90471; 90715; J7040; Z7502; Z7610; 93005